=== PATIENT | female | born 1960 | race Hispanic/Latino ===

== ENCOUNTER 2016-09-21 11:14 | Emergency (ER) | payer MEDICARE, OTHER ==
[~2016-09-21] VITALS: Ht 154.9 cm; Wt 65.0 kg
[~2016-09-21 11:14] MED LIST: AZITHROMYCIN250 MG PO; CYCLOBENZAPR5 MG PO; DUONEB IN; FENTANYL25 MCG/HR TD; MEDDOSEPAK PO; NAPROSYN500 MG PO; OXYCODONE HCL15 MG PO; PREDNISONE10 MG PO; PREDNISONE20 MG PO; SYMBICORT 80-4.5MCG IN; VENTOLIN HFA IN
[2016-09-21 13:09] LABS: URINE BILIRUBIN - DIPSTICK NEGATIVE (NEGATIVE); URINE BLOOD DIPSTICK NEGATIVE (NEGATIVE); URINE CLARITY CLEAR; URINE COLOR YELLOW; URINE GLUCOSE - DIPSTICK NEGATIVE (NEGATIVE); URINE KETONE NEGATIVE (NEGATIVE); URINE LEUK ESTERASE TRACE (NEGATIVE); URINE NITRITE - DIPSTICK NEGATIVE (Negative); URINE PROTEIN - DIPSTICK NEGATIVE (NEG-TRACE); URINE SPECIFIC GRAVITY 1.015; URINE UROBILINOGEN - DIPSTICK 0.2 E.U./dL (0.2)
[2016-09-21 13:09] LABS: HEMATOCRIT 44.5 % (37.0-47.0); HEMOGLOBIN 14.3 g/dl (12.0-16.0); IMMATURE GRANULOCYTES 1.7 % (0.0-1.0); MEAN CELL VOLUME 85.9 fL CALC (80.0-100.0); MEAN CORPUSCULAR HGB 27.6 pG CALC (26.0-32.0); MEAN CORPUSCULAR HGB CONC 32.1 g/L CALC (32.0-36.0); NEUT# 2.55 thou/uL (2.00-7.15); RED BLOOD COUNT 5.18 mill/uL (4.20-5.60); RED CELL DISTRI WIDTH 12.8 % (11.5-15.5)
[2016-09-21 13:11] LABS: BARBITURATES NEGATIVE (NEGATIVE); COCAINE NEGATIVE (NEGATIVE); METHADONE NEGATIVE (NEGATIVE); OXCYCODONE NEGATIVE (NEGATIVE); TETRAHYDROCANNABIONOL NEGATIVE (NEGATIVE); TRICYLIC ANTIDEPRESSANTS NEGATIVE (NEGATIVE)
[2016-09-21 13:17] LABS: ALBUMIN 4.1 g/dL (3.2-5.0); ALKALINE PHOSPHATASE 62 u/l (38-126); ANION GAP 15 (6-22 (CALC)); BILIRUBIN, TOTAL 0.4 mg/dL (0.0-1.4); BUN 13 mg/dL (7-17); BUN/CREATININE RATIO 22 (12-20 (CALC)); CALCIUM 8.9 mg/dL (8.4-10.2); CARBON DIOXIDE 26 mmol/l (22-30); CHLORIDE 101 mmol/l (95-108); CREATININE 0.6 mg/dL (0.5-1.0); GFR > 60 ML/MIN (>=60 (CALC)); GFR FOR AFR.AMER. > 60 ML/MIN (>=60 (CALC)); GLUCOSE 99 mg/dL (65-105); POTASSIUM 4.2 mmol/l (3.5-5.1); SGOT/AST 27 u/l (14-36); SGPT/ALT 37 u/l (9-52); SODIUM 138 mmol/l (137-146)
[2016-09-21] MEDS ORDERED: FLEXERIL PO (13:25)
[2016-09-21] MEDS ORDERED: CEPHALEXIN500 MG PO (13:26)
[2016-09-21 13:31] VITALS: BP 102/70
== END 2016-09-21 13:38 | disposition home or self-care (01) ==
LOC: ED 11:14
PROVIDERS: Emergency Medicine
DX: M79.1 Myalgia (principal); F15.10 Other stimulant abuse, uncomplicated; F17.210 Nicotine dependence, cigarettes, uncomplicated; R05 Cough

== ENCOUNTER 2016-11-05 12:34 | Emergency (ER) | payer MEDICARE, OTHER ==
[~2016-11-05] VITALS: Ht 154.9 cm; Wt 65.0 kg
[~2016-11-05 12:34] MED LIST changes: +CEPHALEXIN500 MG PO; +FLEXERIL PO
[2016-11-05 14:35] VITALS: BP 125/89
[2016-11-05] MEDS ORDERED: SERTRALINE HCL100 MG PO (14:47)
[2016-11-05] MEDS ORDERED: RISPERDAL1 MG PO (14:47)
[2016-11-05] MEDS ORDERED: TRAZODONE100 MG PO (14:47)
[2016-11-05] MEDS ORDERED: OXYCODONE HCL30 MG PO (14:48)
[2016-11-05] MEDS ORDERED: MORPHINE SUL30 M3 PO (14:49)
[2016-11-05] MEDS ORDERED: LISINOPRIL20 M1 PO (14:50)
[2016-11-05] MEDS ORDERED: VENTOLIN H108 MCG/AC IN (14:50)
== END 2016-11-05 14:46 | disposition home or self-care (01) ==
LOC: ED 12:34
DX: S46.911A Strain of unspecified muscle, fascia and tendon at shoulder and upper arm level, right arm, initial encounter (principal); M25.511 Pain in right shoulder; X58.XXXA Exposure to other specified factors, initial encounter; Y93.84 Activity, sleeping; Y92.003 Bedroom of unspecified non-institutional (private) residence as the place of occurrence of the external cause

== ENCOUNTER 2017-02-03 19:53 | Emergency (ER) | payer MEDICARE, OTHER ==
[~2017-02-03] VITALS: Ht 154.9 cm; Wt 69.6 kg
[~2017-02-03 19:53] MED LIST changes: +LISINOPRIL20 M1 PO; +MORPHINE SUL30 M3 PO; +OXYCODONE HCL30 MG PO; +RISPERDAL1 MG PO; +SERTRALINE HCL100 MG PO; +TRAZODONE100 MG PO; +VENTOLIN H108 MCG/AC IN
[2017-02-03] MEDS ORDERED: MEDDOSEPAK PO (20:49)
[2017-02-03 21:07] VITALS: BP 123/82
== END 2017-02-03 21:04 | disposition home or self-care (01) ==
LOC: ED 19:53
DX: M75.21 Bicipital tendinitis, right shoulder (principal); J45.909 Unspecified asthma, uncomplicated; F17.210 Nicotine dependence, cigarettes, uncomplicated

== ENCOUNTER 2018-10-05 11:48 | Emergency (ER) | payer MEDICARE, MEDICAID ==
[~2018-10-05] VITALS: Ht 154.9 cm; Wt 72.0 kg
[2018-10-05 12:31] LABS: IMMATURE GRANULOCYTES 0.5 % (0.0-5.0); MEAN CORPUSCULAR HGB 25.8 pG CALC (26.0-32.0); MEAN CORPUSCULAR HGB CONC 31.1 g/L CALC (32.0-36.0); NEUT# 7.86 thou/uL (2.00-7.15); RED BLOOD COUNT 5.42 mill/uL (4.20-5.60); RED CELL DISTRI WIDTH 13.4 % (11.5-15.5)
[2018-10-05 12:37] LABS: ANION GAP 16 (6-22 (CALC)); BUN 19 mg/dL (7-17); BUN/CREATININE RATIO 33 (12-20 (CALC)); CARBON DIOXIDE 24 mmol/l (22-30); CHLORIDE 104 mmol/l (95-108); CPK 62 u/l (30-165); CREATININE 0.6 mg/dL (0.5-1.0); GFR > 60 ML/MIN (>=60 (CALC)); GFR FOR AFR.AMER. > 60 ML/MIN (>=60 (CALC)); POTASSIUM 4.6 mmol/l (3.5-5.1); SODIUM 140 mmol/l (137-146)
[2018-10-05 12:58] LABS: URINE BILIRUBIN - DIPSTICK NEGATIVE (NEGATIVE); URINE BLOOD DIPSTICK NEGATIVE (NEGATIVE); URINE COLOR YELLOW; URINE GLUCOSE - DIPSTICK NEGATIVE (NEGATIVE); URINE KETONE TRACE mg/dL (NEGATIVE); URINE LEUK ESTERASE NEGATIVE (NEGATIVE); URINE NITRITE - DIPSTICK NEGATIVE (Negative); URINE PROTEIN - DIPSTICK NEGATIVE (NEG-TRACE); URINE SPECIFIC GRAVITY 1.015; URINE UROBILINOGEN - DIPSTICK 0.2 E.U./dL (0.2)
[2018-10-05] MEDS ORDERED: PREDNISONE50 MG PO (13:03)
[2018-10-05 13:11] VITALS: BP 119/84
== END 2018-10-05 13:21 | disposition home or self-care (01) ==
LOC: ED 11:48
PROVIDERS: Family Medicine
DX: S16.1XXA Strain of muscle, fascia and tendon at neck level, initial encounter (principal); S46.912A Strain of unspecified muscle, fascia and tendon at shoulder and upper arm level, left arm, initial encounter; S46.911A Strain of unspecified muscle, fascia and tendon at shoulder and upper arm level, right arm, initial encounter; R53.1 Weakness; F17.210 Nicotine dependence, cigarettes, uncomplicated; I10 Essential (primary) hypertension; Y92.009 Unspecified place in unspecified non-institutional (private) residence as the place of occurrence of the external cause

== ENCOUNTER 2018-11-15 14:58 | Emergency (ER) | payer MEDICARE, MEDICAID ==
[~2018-11-15] VITALS: Ht 154.9 cm; Wt 67.0 kg
[~2018-11-15 14:58] MED LIST changes: +PREDNISONE50 MG PO
[2018-11-15] MEDS ORDERED: FLEXERIL5 MG PO (16:37)
[2018-11-15] MEDS ORDERED: IBUPROFEN600 MG PO (16:37)
[2018-11-15 18:20] VITALS: BP 125/72
== END 2018-11-15 18:20 | disposition home or self-care (01) ==
LOC: ED 14:58
DX: S16.1XXA Strain of muscle, fascia and tendon at neck level, initial encounter (principal); I10 Essential (primary) hypertension; F17.210 Nicotine dependence, cigarettes, uncomplicated; V43.62XA Car passenger injured in collision with other type car in traffic accident, initial encounter

== ENCOUNTER 2018-11-22 11:49 | Emergency (ER) | payer OTHER, MEDICARE, MEDICAID ==
[~2018-11-22] VITALS: Ht 154.9 cm; Wt 68.0 kg
[~2018-11-22 11:49] MED LIST changes: +FLEXERIL5 MG PO; +IBUPROFEN600 MG PO
[2018-11-22] MEDS ORDERED: ADVIL MIGRAI200 M1 PO (12:15)
[2018-11-22] MEDS ORDERED: MEDDOSEPAK PO (12:54)
[2018-11-22 13:10] VITALS: BP 145/77
== END 2018-11-22 13:10 | disposition home or self-care (01) | DRG 563 ==
LOC: ED 11:49
DX: S46.912A Strain of unspecified muscle, fascia and tendon at shoulder and upper arm level, left arm, initial encounter (principal); S76.912A Strain of unspecified muscles, fascia and tendons at thigh level, left thigh, initial encounter; I10 Essential (primary) hypertension; F17.210 Nicotine dependence, cigarettes, uncomplicated; V89.2XXA Person injured in unspecified motor-vehicle accident, traffic, initial encounter

== ENCOUNTER 2018-12-21 01:54 | Emergency (ER) | payer MEDICARE, MEDICAID ==
[~2018-12-21] VITALS: Ht 154.9 cm; Wt 80.0 kg
[~2018-12-21 01:54] MED LIST changes: +ADVIL MIGRAI200 M1 PO
[2018-12-21 03:00] VITALS: BP 115/56
== END 2018-12-21 03:30 | disposition home or self-care (01) ==
LOC: ED 01:54
PROC: 0HQ0XZZ Repair Scalp Skin, External Approach (ICD-10-PCS; principal; 2018-12-21)
DX: S01.01XA Laceration without foreign body of scalp, initial encounter (principal); I10 Essential (primary) hypertension; F17.210 Nicotine dependence, cigarettes, uncomplicated; W01.0XXA Fall on same level from slipping, tripping and stumbling without subsequent striking against object, initial encounter; Y92.009 Unspecified place in unspecified non-institutional (private) residence as the place of occurrence of the external cause

== ENCOUNTER 2019-01-03 22:57 | Emergency (ER) | payer MEDICARE, MEDICAID ==
[~2019-01-03] VITALS: Ht 154.9 cm; Wt 65.0 kg
[2019-01-03 23:29] VITALS: BP 125/76
== END 2019-01-03 23:29 | disposition home or self-care (01) ==
LOC: ED 22:57
DX: S01.90XD Unspecified open wound of unspecified part of head, subsequent encounter (principal); X58.XXXD Exposure to other specified factors, subsequent encounter; I10 Essential (primary) hypertension

== ENCOUNTER 2019-01-24 15:33 | Emergency (ER) | payer MEDICARE, MEDICAID ==
[~2019-01-24] VITALS: Ht 154.9 cm; Wt 70.0 kg
[2019-01-24 18:40] VITALS: BP 121/77
== END 2019-01-24 18:40 | disposition home or self-care (01) ==
LOC: ED 15:33
DX: G89.29 Other chronic pain (principal); I10 Essential (primary) hypertension; J45.909 Unspecified asthma, uncomplicated; F17.210 Nicotine dependence, cigarettes, uncomplicated